=== PATIENT | male | born 1950 | race Hispanic/Latino ===

== ENCOUNTER 2017-08-19 06:04 | Day surgery (SDC) | payer OTHER ==
[2017-08-17 12:48] LABS: BASOPHILS % (AUTO) 0.6 % (0.0-5.0); EOSINOPHILS % (AUTO) 3.1 % (0.0-8.0); HEMATOCRIT 38.4 % (42-54); LYMPHOCYTES % (AUTO) 35.5 % (21.0-51.0); MEAN CORPUSCULAR HEMOGLOBIN 30.7 pg (27.0-33.0); MEAN CORPUSCULAR HGB CONC 35.9 g/dL (32.0-36.0); MEAN CORPUSCULAR VOLUME 85.6 fL (79-99); NEUTROPHILS % (AUTO) 45.8 % (40.0-77.0); PLATELET COUNT (AUTO) 161 K/uL (130-400); RED BLOOD CELL COUNT(AUTO) 4.48 MIL/uL (4.50-6.20); RED CELL DISTRIBUTION WIDTH 14.3 % (11.0-15.5); WHITE BLOOD COUNT (AUTO) 6.8 K/uL (4.8-10.8)
[2017-08-17 12:52] LABS: POTASSIUM 4.6 mmol/L (3.5-5.1)
[2017-08-17 12:55] LABS: INR 1.51 (0.85-1.15); PARTIAL THROMBOPLASTIN TIME 31.9 SEC (26.3-35.5); PROTHROMBIN TIME 15.7 SEC (9.6-11.6)
[2017-08-17 13:04] VITALS: BP 137/76
[~2017-08-19] VITALS: Ht 167.6 cm; Wt 80.0 kg
[2017-08-19] VITALS (10 sets, daily range): BP systolic 102–164; BP diastolic 53–82
[~2017-08-19 06:04] MED LIST: CARV12.511 PO; DOXA8TAB81 PO; DRON400T2 PO; LEVO100T12 PO; SIMV10TA6 PO; SODIUM CHLORIDE 0.9% 1000ML 1,000 ML IV SCH; WARF-57 PO; WARF2.5T85 PO
[2017-08-19] MEDS ORDERED: BUPIVACAINE/PF 0.25% 30ML VIAL IJ ONE (07:18)
[2017-08-19] MEDS ORDERED: CEFAZOLIN 1GM / D5W 50ML 150 ML ONE (07:19)
[2017-08-19] MEDS ORDERED: LIDOCAINE HCL 1% MDV 50ML VIAL ONE (07:20)
[2017-08-19] MEDS ORDERED: MIDAZOLAM HCL 1 MG/ML 2ML VIAL ONE ×2 (07:40→08:12)
[2017-08-19] MEDS ORDERED: MEPERIDINE-PF 25 MG/ML SYG ONE ×2 (07:40→08:12)
[2017-08-19] MEDS ORDERED: TYL3 PO (09:13)
[2017-08-19] MEDS ORDERED: ACETAMINOPHEN-CODEINE 300/30MG TAB PO PRN ×2 (09:15)
[2017-08-19] MEDS ORDERED: ACETAMINOPHEN 325 MG TAB PO PRN (09:15)
[2017-08-19 10:14] LABS: INR 1.48 (0.85-1.15); PROTHROMBIN TIME 15.4 SEC (9.6-11.6)
[2017-08-19] MEDS ORDERED: WARFARIN SODIUM 10 MG TABLET PO SCH (10:45)
== END 2017-08-19 14:35 | disposition home or self-care (01) ==
LOC: DAH 06:04
PROVIDERS: ATTEND Internal Medicine Cardiovascular Disease
DX: Z45.02 Encounter for adjustment and management of automatic implantable cardiac defibrillator (principal); I42.0 Dilated cardiomyopathy; I48.3 Typical atrial flutter; E03.9 Hypothyroidism, unspecified; I10 Essential (primary) hypertension; I48.0 Paroxysmal atrial fibrillation; Z79.01 Long term (current) use of anticoagulants
CPT/HCPCS: 33263; 36415 ×2; 80048; 85025; 85610 ×2; 85730; 93005; 99156; 99157; A4606; C1721; J0690; J2175 ×2; J2250 ×2; J3490 ×2; 99152; 99153

== ENCOUNTER → 2019-09-05 | Outpatient (CLI) | payer OTHER ==
[~2019-09-05] MED LIST changes: -SIMV10TA6 PO; +SIMV10TA97 PO; -SODIUM CHLORIDE 0.9% 1000ML 1,000 ML IV SCH; +TYL3 PO
== END | disposition home or self-care (01) ==
LOC: SHCH 08:46
PROVIDERS: ATTEND Internal Medicine Cardiovascular Disease
DX: I08.8 Other rheumatic multiple valve diseases (principal); Z95.2 Presence of prosthetic heart valve
CPT/HCPCS: 93306; 93356

== ENCOUNTER 2019-09-29 07:35 | Day surgery (SDC) | payer OTHER ==
[~2019-09-29] VITALS: Ht 167.6 cm; Wt 80.7 kg
[~2019-09-29 07:35] MED LIST changes: +AMLO5TAB9 PO; -DRON400T2 PO; +LOSA100T58 PO; +ROSU20TA31 PO; +SODIUM CHLORIDE 0.9% 1000ML 1,000 ML IV ONE; -TYL3 PO; +WARF; -WARF-57 PO; -WARF2.5T85 PO; +WARFARIN PO
[2019-09-29] MEDS ORDERED: AMPICILLIN 2 GM VIAL IV SCH (08:15)
[2019-09-29 08:53] VITALS: BP 144/62
[2019-09-29 08:59] LABS: INR 1.74 (0.85-1.15); PROTHROMBIN TIME 17.9 SEC (9.6-11.6)
--- NOTE | 2019-09-29 09:04 | NUR ---
NURSING REGARDING PREOP AMOXICILLIN FOR HEART VALVE . PT TOOK PO AMOXICILLIN AT [address] FREEMAN AND PER DR BAYRON DUNBAR TO HOLD IV AMOXICILLIN Addendum: 09/29/19 at 0906 by ALCIDES LEWIS RN Amended: Links added.
[2019-09-29] MEDS ORDERED: SODIUM CHLORIDE 0.9% 1000ML 1,000 ML IV ONE (09:09)
[2019-09-29] MEDS ORDERED: PROPOFOL 10 MG/ML 20ML VIAL IV ONE (09:35)
[2019-09-29] MEDS ORDERED: GLYCOPYRROLATE 0.2 MG/ML 5 ML VIAL ONE (09:54)
[2019-09-29] MEDS ORDERED: EPHEDRINE SULFATE 50 MG/ML AMPULE ONE (10:01)
[2019-09-29 10:06] VITALS: BP 127/62
[2019-09-29 10:11] VITALS: BP 126/63
[2019-09-29 10:16] VITALS: BP 128/62
[2019-09-29 10:21] VITALS: BP 124/65
== END 2019-09-29 10:32 | disposition home or self-care (01) ==
LOC: DAH 07:35 → ENDO 07:35
PROVIDERS: ATTEND Internal Medicine Gastroenterology
DX: R19.5 Other fecal abnormalities (principal); D12.6 Benign neoplasm of colon, unspecified; K62.1 Rectal polyp; K57.30 Diverticulosis of large intestine without perforation or abscess without bleeding; I10 Essential (primary) hypertension; E03.9 Hypothyroidism, unspecified; E78.5 Hyperlipidemia, unspecified; K21.9 Gastro-esophageal reflux disease without esophagitis; Z86.010 Personal history of colon polyps; Z98.0 Intestinal bypass and anastomosis status; Z95.0 Presence of cardiac pacemaker; Z79.01 Long term (current) use of anticoagulants; Z79.3 Long term (current) use of hormonal contraceptives; Z79.899 Other long term (current) drug therapy; Z98.890 Other specified postprocedural states; Z90.49 Acquired absence of other specified parts of digestive tract; Z95.2 Presence of prosthetic heart valve; Z79.02 Long term (current) use of antithrombotics/antiplatelets
CPT/HCPCS: 36415; 45380; 45385; 85610; A4215; A4221; A4222; A4223; A4606; A4620; A4663; J2704; J3490 ×2; J7030; J0290

== ENCOUNTER → 2020-10-23 | Outpatient (CLI) | payer OTHER ==
[~2020-10-23] MED LIST changes: +AMLO-257 PO; -AMLO5TAB9 PO; -SIMV10TA97 PO; -SODIUM CHLORIDE 0.9% 1000ML 1,000 ML IV ONE; -WARF
== END | disposition home or self-care (01) ==
LOC: SHCH 15:18
PROVIDERS: ATTEND Internal Medicine Cardiovascular Disease
DX: I35.8 Other nonrheumatic aortic valve disorders (principal); Z95.4 Presence of other heart-valve replacement
CPT/HCPCS: 93306; 93356

== ENCOUNTER 2021-04-04 08:25 | Day surgery (SDC) | payer OTHER ==
[2021-04-03 09:28] LABS: BASOPHILS % (AUTO) 0.6 % (0.0-5.0); EOSINOPHILS % (AUTO) 2.8 % (0.0-8.0); HEMATOCRIT 35.7 % (42-54); LYMPHOCYTES % (AUTO) 36.4 % (21.0-51.0); MEAN CORPUSCULAR HEMOGLOBIN 26.3 pg (27.0-33.0); MEAN CORPUSCULAR HGB CONC 31.7 g/dL (32.0-36.0); MEAN CORPUSCULAR VOLUME 83.2 fL (79-99); MONOCYTES % (AUTO) 15.9 % (3.0-13.0); NEUTROPHILS % (AUTO) 44.1 % (40.0-77.0); PLATELET COUNT (AUTO) 165 K/uL (130-400); RED BLOOD CELL COUNT(AUTO) 4.29 MIL/uL (4.50-6.20); RED CELL DISTRIBUTION WIDTH 14.4 % (11.0-15.5); WHITE BLOOD COUNT (AUTO) 4.6 K/uL (4.8-10.8)
[2021-04-03 09:36] LABS: CREATININE 0.9 mg/dL (0.5-1.5); POTASSIUM 4.2 mmol/L (3.5-5.1)
[2021-04-03 10:22] VITALS: BP 149/78
[~2021-04-04] VITALS: Ht 167.6 cm; Wt 78.6 kg
[2021-04-04] VITALS (9 sets, daily range): BP systolic 114–149; BP diastolic 54–88
[~2021-04-04 08:25] MED LIST changes: +0.9%NACL 1000ML 1,000 ML IV SCH; -AMLO-257 PO; +AMLO2.5T4 PO; -LOSA100T58 PO; +OLME40TA18 PO
[2021-04-04 09:19] LABS: INR 2.82 (0.85-1.15)
[2021-04-04 09:21] LABS: PARTIAL THROMBOPLASTIN TIME 39.5 SEC (26.3-35.5)
[2021-04-04] MEDS ORDERED: PROPOFOL 10 MG/ML 20ML VIAL IV ONE (09:43)
== END 2021-04-04 10:45 | disposition home or self-care (01) ==
LOC: DAH 08:25
PROVIDERS: ATTEND Internal Medicine Cardiovascular Disease
DX: I48.11 Longstanding persistent atrial fibrillation (principal); I50.9 Heart failure, unspecified; E03.9 Hypothyroidism, unspecified; E66.9 Obesity, unspecified; Z20.822 Contact with and (suspected) exposure to COVID-19
CPT/HCPCS: 36415 ×2; 80048; 85025; 85610; 85730; 87635; 92960; 93005 ×2; A4215; A4216; A4221; A4222; A4223 ×3; A4606; A4663; A6260; C9803; J2704; J7030

== ENCOUNTER 2021-05-26 05:57 | Observation (INO) | payer OTHER ==
[2021-05-22 11:08] LABS: BASOPHILS % (AUTO) 0.4 % (0.0-5.0); EOSINOPHILS % (AUTO) 2.7 % (0.0-8.0); HEMATOCRIT 38.1 % (42-54); LYMPHOCYTES % (AUTO) 33.3 % (21.0-51.0); MEAN CORPUSCULAR HEMOGLOBIN 26.5 pg (27.0-33.0); MEAN CORPUSCULAR HGB CONC 31.5 g/dL (32.0-36.0); MEAN CORPUSCULAR VOLUME 84.3 fL (79-99); MONOCYTES % (AUTO) 15.7 % (3.0-13.0); NEUTROPHILS % (AUTO) 46.7 % (40.0-77.0); PLATELET COUNT (AUTO) 169 K/uL (130-400); RED BLOOD CELL COUNT(AUTO) 4.52 MIL/uL (4.50-6.20); RED CELL DISTRIBUTION WIDTH 14.7 % (11.0-15.5); WHITE BLOOD COUNT (AUTO) 5.2 K/uL (4.8-10.8)
[2021-05-22 11:16] LABS: CREATININE 0.9 mg/dL (0.5-1.5); POTASSIUM 4.5 mmol/L (3.5-5.1)
[2021-05-22 11:46] LABS: INR 2.96 (0.85-1.15); PROTHROMBIN TIME 29.2 SEC (9.6-11.6)
[2021-05-22 11:47] LABS: PARTIAL THROMBOPLASTIN TIME 41.9 SEC (26.3-35.5)
[~2021-05-26] VITALS: Ht 167.6 cm; Wt 75.8 kg
[2021-05-26] VITALS (13 sets, daily range): BP systolic 131–148; BP diastolic 47–67
[~2021-05-26 05:57] MED LIST changes: -0.9%NACL 1000ML 1,000 ML IV SCH
[2021-05-26] MEDS ORDERED: 0.9%NACL 1000ML 1,000 ML IV ONE (06:04)
[2021-05-26] MEDS ORDERED: MIDAZOLAM HCL 1 MG/ML 2ML VIAL ONE (07:37)
[2021-05-26] MEDS ORDERED: LIDOCAINE HCL 400MG/20ML VIAL ONE (07:37)
[2021-05-26] MEDS ORDERED: MEPERIDINE-PF 25 MG/ML SYG ONE (07:37)
[2021-05-26] MEDS ORDERED: HEPARIN 10,000 UNIT/10ML (1,000 UNIT/ML) VIAL ONE (07:37)
[2021-05-26] MEDS ORDERED: VANCOMYCIN 1G 1 GM in 0.9% NACL 250ML 250 ML IV PRN (13:30)
[2021-05-26] MEDS ORDERED: MORPHINE 2 MG SYG IVP PRN (17:30)
[2021-05-26] MEDS ORDERED: ACETAMINOPHEN 325 MG TAB PO PRN (17:30)
[2021-05-26] MEDS ORDERED: ONDANSETRON 4MG INJ IVP PRN (17:30)
[2021-05-26] MEDS: DOXAZOSIN MESYLATE 2 MG TABLET PO SCH (21:04)
[2021-05-26] MEDS: CARVEDILOL 12.5 MG TABLET PO SCH (21:04)
[2021-05-27] VITALS (12 sets, daily range): BP systolic 116–164; BP diastolic 47–94
[2021-05-27 04:02] LABS: INR 1.69 (0.85-1.15); PROTHROMBIN TIME 17.6 SEC (9.6-11.6)
[2021-05-27] MEDS: LEVOTHYROXINE 100 MCG TABLET PO SCH (07:04)
[2021-05-27] MEDS: LOSARTAN 100 MG TABLET PO SCH (08:43)
[2021-05-27] MEDS: CARVEDILOL 12.5 MG TABLET PO SCH ×2 (08:43→21:57)
[2021-05-27] MEDS: ATORVASTATIN 40 MG TABLET PO SCH (08:43)
[2021-05-27] MEDS ORDERED: LIDOCAINE HCL 1% MDV 50ML VIAL ONE (11:49)
[2021-05-27] MEDS ORDERED: MEPERIDINE-PF 25 MG/ML SYG ONE ×3 (11:49→12:23)
[2021-05-27] MEDS ORDERED: BUPIVACAINE/PF 0.25% 30ML VIAL IJ ONE (11:49)
[2021-05-27] MEDS ORDERED: MIDAZOLAM HCL 1 MG/ML 2ML VIAL ONE ×3 (11:49→12:22)
[2021-05-27] MEDS ORDERED: IODIXANOL 320 MG/ML 100 ML VIAL ONE (12:11)
[2021-05-27] MEDS ORDERED: WARFARIN SODIUM 5 MG TAB PO SCH (14:30)
[2021-05-27] MEDS ORDERED: ACETAMINOPHEN WITH CODEINE 1 TAB TAB PO PRN (14:30)
[2021-05-27] MEDS: AMLODIPINE 2.5 MG TAB PO SCH (15:30)
[2021-05-27] MEDS: DOXAZOSIN MESYLATE 2 MG TABLET PO SCH (21:58)
[2021-05-28 04:39] VITALS: BP 127/58
[2021-05-28] MEDS: LEVOTHYROXINE 100 MCG TABLET PO SCH (06:30)
[2021-05-28 07:57] VITALS: BP 131/61
[2021-05-28 09:04] VITALS: BP 131/61
[2021-05-28] MEDS: AMLODIPINE 2.5 MG TAB PO SCH (09:04)
[2021-05-28] MEDS: CARVEDILOL 12.5 MG TABLET PO SCH (09:04)
[2021-05-28] MEDS: ATORVASTATIN 40 MG TABLET PO SCH (09:04)
[2021-05-28] MEDS: LOSARTAN 100 MG TABLET PO SCH (09:04)
[2021-05-28 09:21] LABS: INR 1.53 (0.85-1.15)
[2021-05-28] MEDS ORDERED: WARFARIN SODIUM 5 MG TAB PO SCH (10:30)
== END 2021-05-28 10:20 | disposition home or self-care (01) ==
LOC: DAH 05:57 → DAHIP 05:58 → DAH 05:58 → 4DH 16:47
PROVIDERS: ADMIT Internal Medicine Cardiovascular Disease; ATTEND Internal Medicine Cardiovascular Disease
DX: I47.2 Ventricular tachycardia (principal); T82.110A Breakdown (mechanical) of cardiac electrode, initial encounter; I45.9 Conduction disorder, unspecified; I49.5 Sick sinus syndrome; I10 Essential (primary) hypertension; I48.0 Paroxysmal atrial fibrillation; E03.9 Hypothyroidism, unspecified; Y71.2 Prosthetic and other implants, materials and accessory cardiovascular devices associated with adverse incidents; Z95.810 Presence of automatic (implantable) cardiac defibrillator; Z95.2 Presence of prosthetic heart valve; Z79.899 Other long term (current) drug therapy
CPT/HCPCS: 33249; 36415 ×3; 71045; 80048; 85025; 85610 ×3; 85730; 93005; 93620; A4215; A4216; A4221; A4222; A4223 ×3; A4606; A4663; C1721; C1730 ×2; C1894 ×2; C1895; G0378 ×45; J1644; J2175 ×4; J2250 ×4; J3490 ×3; J7030; Q9967; 99156; 99157

== ENCOUNTER 2021-07-05 22:57 | Emergency (ER) | payer OTHER ==
[~2021-07-05] VITALS: Ht 167.6 cm; Wt 77.1 kg
[2021-07-05 23:18] LABS: BASOPHILS % (AUTO) 0.6 % (0.0-5.0); EOSINOPHILS % (AUTO) 3.4 % (0.0-8.0); HEMATOCRIT 31.9 % (42-54); LYMPHOCYTES % (AUTO) 35.8 % (21.0-51.0); MEAN CORPUSCULAR HEMOGLOBIN 25.7 pg (27.0-33.0); MEAN CORPUSCULAR VOLUME 80.4 fL (79-99); NEUTROPHILS % (AUTO) 42.8 % (40.0-77.0); PLATELET COUNT (AUTO) 161 K/uL (130-400); RED BLOOD CELL COUNT(AUTO) 3.97 MIL/uL (4.50-6.20); RED CELL DISTRIBUTION WIDTH 14.3 % (11.0-15.5); WHITE BLOOD COUNT (AUTO) 5.4 K/uL (4.8-10.8)
[2021-07-05 23:33] LABS: INR 3.2 (0.85-1.15); PROTHROMBIN TIME 31.4 SEC (9.6-11.6)
[2021-07-05 23:34] LABS: PARTIAL THROMBOPLASTIN TIME 41.9 SEC (26.3-35.5)
[2021-07-06 01:27] VITALS: BP 138/61
== END 2021-07-06 01:36 | disposition home or self-care (01) ==
LOC: EDH 22:57
DX: S01.502A Unspecified open wound of oral cavity, initial encounter (principal); S01.552A Open bite of oral cavity, initial encounter; X58.XXXA Exposure to other specified factors, initial encounter; E78.00 Pure hypercholesterolemia, unspecified; I10 Essential (primary) hypertension; Z79.01 Long term (current) use of anticoagulants; Z79.899 Other long term (current) drug therapy; Y93.89 Activity, other specified; Y92.89 Other specified places as the place of occurrence of the external cause; Y99.8 Other external cause status
CPT/HCPCS: 36415; 85025; 85610; 85730

== ENCOUNTER → 2021-11-03 | Outpatient (CLI) | payer OTHER | END | disposition home or self-care (01) | LOC: SHCH 13:26 | PROVIDERS: ATTEND Internal Medicine Cardiovascular Disease | DX: I08.2 Rheumatic disorders of both aortic and tricuspid valves (principal); I42.0 Dilated cardiomyopathy; I49.3 Ventricular premature depolarization; I25.10 Atherosclerotic heart disease of native coronary artery without angina pectoris; Z95.2 Presence of prosthetic heart valve; Z95.810 Presence of automatic (implantable) cardiac defibrillator | CPT/HCPCS: 93306 ==

== ENCOUNTER → 2021-12-03 | Outpatient (CLI) | payer OTHER ==
[2021-12-03 12:25] LABS: BASOPHILS % (AUTO) 0.6 % (0.0-5.0); EOSINOPHILS % (AUTO) 3.9 % (0.0-8.0); HEMATOCRIT 36.5 % (42-54); LYMPHOCYTES % (AUTO) 27.6 % (21.0-51.0); MEAN CORPUSCULAR HEMOGLOBIN 25.2 pg (27.0-33.0); MEAN CORPUSCULAR HGB CONC 31.2 g/dL (32.0-36.0); MEAN CORPUSCULAR VOLUME 80.8 fL (79-99); MONOCYTES % (AUTO) 22.2 % (3.0-13.0); NEUTROPHILS % (AUTO) 45.5 % (40.0-77.0); PLATELET COUNT (AUTO) 165 K/uL (130-400); RED BLOOD CELL COUNT(AUTO) 4.52 MIL/uL (4.50-6.20); RED CELL DISTRIBUTION WIDTH 16.4 % (11.0-15.5); WHITE BLOOD COUNT (AUTO) 4.9 K/uL (4.8-10.8)
[2021-12-03 12:52] LABS: CREATININE 1.1 mg/dL (0.5-1.5); MAGNESIUM 2.1 mg/dL (1.80-2.40); POTASSIUM 4.2 mmol/L (3.5-5.1); THYROID STIMULATING HORMONE 4.34 uIU/mL (0.36-3.74)
== END | disposition home or self-care (01) ==
LOC: LAB 10:38
PROVIDERS: ATTEND Internal Medicine Cardiovascular Disease
DX: I48.0 Paroxysmal atrial fibrillation (principal)
CPT/HCPCS: 36415; 80048; 83735; 84443; 85025

== ENCOUNTER 2022-01-28 05:49 | Day surgery (SDC) | payer OTHER ==
[2022-01-26 10:43] LABS: BASOPHILS % (AUTO) 0.7 % (0.0-5.0); EOSINOPHILS % (AUTO) 5.2 % (0.0-8.0); HEMATOCRIT 36.2 % (42-54); LYMPHOCYTES % (AUTO) 36.1 % (21.0-51.0); MEAN CORPUSCULAR HEMOGLOBIN 27.4 pg (27.0-33.0); MEAN CORPUSCULAR HGB CONC 33.1 g/dL (32.0-36.0); MEAN CORPUSCULAR VOLUME 82.6 fL (79-99); MONOCYTES % (AUTO) 23.4 % (3.0-13.0); NEUTROPHILS % (AUTO) 34.4 % (40.0-77.0); PLATELET COUNT (AUTO) 170 K/uL (130-400); RED BLOOD CELL COUNT(AUTO) 4.38 MIL/uL (4.50-6.20); RED CELL DISTRIBUTION WIDTH 17.2 % (11.0-15.5); WHITE BLOOD COUNT (AUTO) 4.4 K/uL (4.8-10.8)
[2022-01-26 10:49] LABS: APPEARANCE,URINE CLEAR (CLEAR); BILIRUBIN,URINE NEGATIVE (NEGATIVE); COLOR,URINE YELLOW (YELLOW); GLUCOSE, URINE (UA) NEGATIVE (NEGATIVE); KETONES,URINE NEGATIVE (NEGATIVE); LEUKOCYTE ESTERASE ,URINE LARGE (NEGATIVE); NITRATE,URINE POSITIVE (NEGATIVE); OCCULT BLOOD,URINE TRACE-INTACT (NEGATIVE); PROTEIN,URINE NEGATIVE (NEGATIVE); UROBILINOGEN,URINE 0.2 mg/dL (0.2-1.0)
[2022-01-26 10:54] LABS: POTASSIUM 4.5 mmol/L (3.5-5.1)
[2022-01-26 10:57] LABS: INR 2.26 (0.85-1.15); PROTHROMBIN TIME 23.5 SEC (9.6-11.6)
[2022-01-26 10:58] LABS: PARTIAL THROMBOPLASTIN TIME 35.8 SEC (26.3-35.5)
[2022-01-26 11:23] LABS: BACTERIA,URINE Many /HPF (None Seen); RBC,URINE 0-1 /HPF (0-1); SQUAMOUS EPITHELIAL CELL,UR Rare /HPF (0-2); WBC,URINE TNTC /HPF (0-1)
[2022-01-26 11:44] LABS: B-TYPE NATRIURETIC PEPTIDE 53 pg/mL (0-100)
[~2022-01-28] VITALS: Ht 167.6 cm; Wt 74.8 kg
[2022-01-28] VITALS (9 sets, daily range): BP systolic 99–115; BP diastolic 55–62
[~2022-01-28 05:49] MED LIST changes: +0.9% NACL 250ML 250 ML IV SCH; +DOXA4TAB3 PO; -DOXA8TAB81 PO; +MONT-39 PO; +MULT-1367 PO; -OLME40TA18 PO; +SACU1TAB7 PO; +SPIR25TA6 PO; +WARF3TAB7 PO; -WARFARIN PO
[2022-01-28] MEDS ORDERED: 0.9%NACL 1000ML 1,000 ML IV ONE (06:11)
[2022-01-28 07:12] LABS: INR 1.65 (0.85-1.15); PROTHROMBIN TIME 17.5 SEC (9.6-11.6)
[2022-01-28 07:13] LABS: PARTIAL THROMBOPLASTIN TIME 33.5 SEC (26.3-35.5)
[2022-01-28] MEDS ORDERED: HEPARIN 10,000 UNIT/10ML (1,000 UNIT/ML) VIAL ONE ×2 (10:14→11:22)
[2022-01-28] MEDS ORDERED: BIVALIRUDIN 250 MG/VIAL IV ONE ×2 (10:14→11:22)
[2022-01-28] MEDS ORDERED: LIDOCAINE HCL 400MG/20ML VIAL ONE (10:15)
[2022-01-28] MEDS ORDERED: IOHEXOL 350 MG/ML 100ML INFUS..BTL IV ONE ×2 (10:15→11:23)
[2022-01-28] MEDS ORDERED: IOHEXOL-350 50ML VIAL IV ONE (10:15)
[2022-01-28] MEDS ORDERED: NITROGLYCERIN 50MG VIAL ONE (10:15)
[2022-01-28] MEDS ORDERED: MIDAZOLAM HCL 1 MG/ML 2ML VIAL ONE (10:16)
[2022-01-28] MEDS ORDERED: FENTANYL CITRATE PF 50 MCG/1 ML 2ML VIAL ONE (10:17)
[2022-01-28] MEDS ORDERED: 0.9%NACL 1000ML 1,000 ML IV SCH (12:00)
== END 2022-01-28 17:00 | disposition home or self-care (01) ==
LOC: DAH 05:49
PROVIDERS: ATTEND Internal Medicine Cardiovascular Disease
DX: I08.0 Rheumatic disorders of both mitral and aortic valves (principal); I11.0 Hypertensive heart disease with heart failure; I50.42 Chronic combined systolic (congestive) and diastolic (congestive) heart failure; E03.9 Hypothyroidism, unspecified; I48.0 Paroxysmal atrial fibrillation; G47.33 Obstructive sleep apnea (adult) (pediatric); I42.0 Dilated cardiomyopathy; Z98.890 Other specified postprocedural states; Z90.49 Acquired absence of other specified parts of digestive tract; Z95.2 Presence of prosthetic heart valve; Z79.01 Long term (current) use of anticoagulants; Z79.899 Other long term (current) drug therapy
CPT/HCPCS: 36415 ×2; 71045; 80048; 81001; 83880; 85025; 85610 ×2; 85730 ×2; 87077; 87088; 87186; 93005; 93454; 93567; A4215; A4216; A4221; A4222; A4223 ×3; A4606; A4663; C1760; C1894 ×2; J0583 ×2; J1644 ×3; J2250; J3010; J3490 ×2; J7030; Q9967 ×3; 96360; 96361; 99156; 99157

== ENCOUNTER 2022-03-03 06:49 | Day surgery (SDC) | payer OTHER ==
[2022-02-26 11:20] LABS: BASOPHILS % (AUTO) 0.6 % (0.0-5.0); EOSINOPHILS % (AUTO) 4.4 % (0.0-8.0); HEMATOCRIT 38.6 % (42-54); MEAN CORPUSCULAR HEMOGLOBIN 27.7 pg (27.0-33.0); MEAN CORPUSCULAR HGB CONC 32.9 g/dL (32.0-36.0); MEAN CORPUSCULAR VOLUME 84.3 fL (79-99); MONOCYTES % (AUTO) 18.1 % (3.0-13.0); NEUTROPHILS % (AUTO) 41.7 % (40.0-77.0); PLATELET COUNT (AUTO) 182 K/uL (130-400); RED BLOOD CELL COUNT(AUTO) 4.58 MIL/uL (4.50-6.20); RED CELL DISTRIBUTION WIDTH 16.2 % (11.0-15.5)
[2022-02-26 11:32] LABS: POTASSIUM 4.6 mmol/L (3.5-5.1)
[2022-02-26 11:33] LABS: INR 2.94 (0.85-1.15); PROTHROMBIN TIME 30.1 SEC (9.6-11.6)
[2022-02-26 11:34] LABS: PARTIAL THROMBOPLASTIN TIME 39.9 SEC (26.3-35.5)
[2022-03-02 10:56] VITALS: BP 87/49
[~2022-03-03] VITALS: Ht 167.6 cm; Wt 73.4 kg
[2022-03-03] VITALS (8 sets, daily range): BP systolic 93–140; BP diastolic 50–57
[~2022-03-03 06:49] MED LIST changes: -0.9% NACL 250ML 250 ML IV SCH; -MULT-1367 PO; +WARF2.5T9 PO; -WARF3TAB7 PO
[2022-03-03] MEDS ORDERED: 0.9%NACL 1000ML 1,000 ML IV ONE (07:10)
[2022-03-03 07:26] LABS: INR 1.72 (0.85-1.15); PROTHROMBIN TIME 18.2 SEC (9.6-11.6)
[2022-03-03] MEDS ORDERED: WARFARIN SODIUM 2 MG TAB PO STA (08:26)
[2022-03-03] MEDS ORDERED: WARFARIN SODIUM 2 MG TAB PO SCH (08:30)
[2022-03-03] MEDS ORDERED: BUPIVACAINE/PF 0.25% 30ML VIAL IJ ONE (10:09)
[2022-03-03] MEDS ORDERED: CEFAZOLIN SODIUM 1 GM VIAL ONE (10:10)
[2022-03-03] MEDS ORDERED: LIDOCAINE HCL 400MG/20ML VIAL ONE (10:10)
[2022-03-03] MEDS ORDERED: MIDAZOLAM HCL 1 MG/ML 2ML VIAL ONE ×2 (10:10→11:43)
[2022-03-03] MEDS ORDERED: MEPERIDINE-PF 25 MG/ML SYG ONE ×3 (10:10→11:43)
[2022-03-03] MEDS ORDERED: IOHEXOL-350 50ML VIAL IV ONE (10:12)
[2022-03-03] MEDS ORDERED: TRAM50TA4 PO (12:28)
[2022-03-03] MEDS ORDERED: ACETAMINOPHEN WITH CODEINE 1 TAB TAB PO PRN (12:30)
== END 2022-03-03 15:08 | disposition home or self-care (01) ==
LOC: DAH 06:49
PROVIDERS: ATTEND Internal Medicine Cardiovascular Disease
DX: I49.5 Sick sinus syndrome (principal); I44.2 Atrioventricular block, complete; I48.0 Paroxysmal atrial fibrillation; I34.0 Nonrheumatic mitral (valve) insufficiency; I42.0 Dilated cardiomyopathy; I11.0 Hypertensive heart disease with heart failure; I50.42 Chronic combined systolic (congestive) and diastolic (congestive) heart failure; E03.9 Hypothyroidism, unspecified; G47.33 Obstructive sleep apnea (adult) (pediatric); Z79.899 Other long term (current) drug therapy; Z79.890 Hormone replacement therapy; Z90.49 Acquired absence of other specified parts of digestive tract; Z72.89 Other problems related to lifestyle; Z95.2 Presence of prosthetic heart valve; Z98.890 Other specified postprocedural states; Z79.01 Long term (current) use of anticoagulants
CPT/HCPCS: 80048; 85025; 85610 ×2; 85730; 36415 ×2; 93005; 33264; 33225; 71045; C1769 ×2; C1882; C1900; J0690; J3490 ×2; J7030; J2250 ×2; J2175 ×3; Q9967; A4215; A4222; A4221; A4663; A4216; A4606; A4223 ×3; 99156; 99157

== ENCOUNTER → 2023-03-13 | Outpatient (CLI) | payer OTHER ==
[~2023-03-13] MED LIST changes: -ROSU20TA31 PO; +ROSU20TA73 PO; +TRAM50TA4 PO
== END | disposition home or self-care (01) ==
LOC: SHCH 07:50
PROVIDERS: ATTEND Internal Medicine Cardiovascular Disease
DX: I08.2 Rheumatic disorders of both aortic and tricuspid valves (principal); I42.9 Cardiomyopathy, unspecified
CPT/HCPCS: 93306

== ENCOUNTER → 2023-03-29 | Outpatient (CLI) | payer OTHER ==
[2023-03-29 12:15] LABS: BASOPHILS # (AUTO) 0.03 K/uL (0.00-0.20); BASOPHILS % (AUTO) 0.6 % (0.0-5.0); EOSINOPHILS % (AUTO) 3.8 % (0.0-8.0); HEMATOCRIT 42.1 % (42-54); IMMATURE GRANULOCYTE ABSOLUTE 0.02 K/uL (0-1); LYMPHOCYTES % (AUTO) 37.4 % (21.0-51.0); MEAN CORPUSCULAR HEMOGLOBIN 30.2 pg (27.0-33.0); MEAN CORPUSCULAR VOLUME 88.8 fL (79-99); MONOCYTES # (AUTO) 0.9 K/uL (0.1-1.0); MONOCYTES % (AUTO) 16.1 % (3.0-13.0); NEUTROPHILS # (AUTO) 2.2 K/uL (1.8-7.7); NEUTROPHILS % (AUTO) 41.7 % (40.0-77.0); PLATELET COUNT (AUTO) 162 K/uL (130-400); RED BLOOD CELL COUNT(AUTO) 4.74 MIL/uL (4.50-6.20); RED CELL DISTRIBUTION WIDTH 13.2 % (11.0-15.5); WHITE BLOOD COUNT (AUTO) 5.3 K/uL (4.8-10.8)
[2023-03-29 12:45] LABS: CREATININE 0.9 mg/dL (0.5-1.5); POTASSIUM 4.1 mmol/L (3.5-5.1)
[2023-03-29 12:58] LABS: EOSINOPHILS % (MANUAL) 3 % (1-6); LYMPHOCYTES % (MANUAL) 35 % (22-44); MAN.DIFF COMMENT-IMPRESSION MANUAL DIFFERENTIAL; MONOCYTES % (MANUAL) 13 % (2-9); PLATELET MORPHOLOGY COMMENT ADEQUATE; REACTIVE LYMPHOCYTES 4 % (0-0); SEGMENTED NEUTROPHILS % 45 % (40-70); TOTAL CELLS COUNTED 100
== END | disposition home or self-care (01) ==
LOC: LAB 09:48
PROVIDERS: ATTEND Internal Medicine Cardiovascular Disease
DX: I50.42 Chronic combined systolic (congestive) and diastolic (congestive) heart failure (principal); Z79.01 Long term (current) use of anticoagulants
CPT/HCPCS: 36415; 80048; 83880; 85025

== ENCOUNTER → 2023-11-03 | Outpatient (CLI) | payer OTHER ==
[2023-11-03 12:37] LABS: CREATININE 0.7 mg/dL (0.5-1.3)
== END | disposition home or self-care (01) ==
LOC: LAB 08:34
PROVIDERS: ATTEND Internal Medicine Cardiovascular Disease
DX: I50.42 Chronic combined systolic (congestive) and diastolic (congestive) heart failure (principal)
CPT/HCPCS: 36415; 80048; 83880

== ENCOUNTER → 2024-06-16 | Outpatient (CLI) | payer OTHER ==
[~2024-06-16] MED LIST changes: -ROSU20TA73 PO; +ROSU20TA98 PO
== END | disposition home or self-care (01) ==
LOC: SHCH 13:11
PROVIDERS: ATTEND Internal Medicine Cardiovascular Disease
DX: I35.1 Nonrheumatic aortic (valve) insufficiency (principal); Z95.2 Presence of prosthetic heart valve
CPT/HCPCS: 93306